=== PATIENT | male | born 1980 | race Caucasian/White ===

== ENCOUNTER 2020-08-09 10:50 | Inpatient (IN) | payer BC ==
[2020-08-09] MEDS ORDERED: chlordiazePOXIDE HCL 25 MG CAPSULE ONE (11:52)
[2020-08-09] MEDS ORDERED: MAGNESIUM CITRATE 300 ML BOTTLE PO PRN (12:10)
[2020-08-09] MEDS ORDERED: MAG HYDROX/AL HYDROX/SIMETH 30 ML UNIT-DOSE CUP PO PRN (12:10)
[2020-08-09] MEDS ORDERED: IBUPROFEN 400 MG TABLET (FP) PO PRN (12:10)
[2020-08-09] MEDS ORDERED: ACETAMINOPHEN 325 MG TABLET (FP) PO PRN ×2 (12:10)
[2020-08-09] MEDS ORDERED: MENTHOL/PHENOL 1 EACH UD MM PRN (12:10)
[2020-08-09] MEDS ORDERED: BISMUTH SUBSALICYLATE 262 MG/15 ML BTL PO PRN (12:10)
[2020-08-09] MEDS ORDERED: ONDANSETRON *ODT* 4 MG TABLET SL PRN (12:10)
[2020-08-09] MEDS ORDERED: chlordiazePOXIDE HCL 25 MG CAPSULE PO PRN (12:10)
[2020-08-09] MEDS ORDERED: METHOCARBAMOL 500 MG TABLET PO PRN (12:10)
[2020-08-09] MEDS ORDERED: MAGNESIUM HYDROX 2400MG/30ML ORAL SUSPENSION 30 ML CUP PO PRN (12:10)
[2020-08-09 12:12] VITALS: BMI 39.8
[2020-08-09] MEDS: hydrOXYzine PAMOATE 25 MG CAPSULE (FP) PO SCH ×3 (13:47→22:26)
[2020-08-09] MEDS: chlordiazePOXIDE HCL 25 MG CAPSULE PO SCH ×3 (13:47→22:21)
[2020-08-09] MEDS: PRENATAL VITAMINS W/ FOLIC ACID TABLET (FP) PO SCH (13:53)
[2020-08-09 17:01] LABS: HEMATOCRIT 51.8 % (35.4-49); HEMOGLOBIN 17.7 GM/dL (11.7-16.9); MCH 32.1 pg (25.7-33.7); MCHC 34.3 g/dl (32.0-35.9); MEAN CELL VOLUME 93.6 fl (80-96); MEAN PLT VOLUME 8.7 fl (7.5-11.1); PLATELET COUNT 209 K/MM3 (134-434); RBC 5.53 M/mm3 (4.00-5.60); RDW 16.4 % (11.9-15.9); WHITE BLOOD COUNT 7.1 K/mm3 (4.0-10.0)
[2020-08-09 17:09] LABS: ALBUMIN 4.3 g/dl (3.4-5.0); BLOOD UREA NITROGEN 19.9 mg/dL (7-18); CALCIUM 8.6 mg/dL (8.5-10.1)
[2020-08-09 17:12] LABS: CREATININE 1.7 mg/dL (0.55-1.3)
[2020-08-09 17:13] LABS: BILIRUBIN,TOTAL 1.1 mg/dL (0.2-1); TOT PROT 8.6 g/dl (6.4-8.2)
[2020-08-09 18:17] LABS: HIV INTERPRETATION NEGATIVE (NEGATIVE)
[2020-08-09] MEDS ORDERED: POTASSIUM CHLORIDE TABS 20 MEQ TABLET.ER (FP) PO ONE (18:57)
[2020-08-09] MEDS ORDERED: MELATONIN 5 MG TABLETS PO SCH (22:00)
[2020-08-09] MEDS: traZODone HCL 50 MG TABLET (FP) PO SCH (22:21)
[2020-08-09] MEDS: THIAMINE HCL 100 MG TABLET (FP) PO SCH (22:21)
[2020-08-09] MEDS: CARVEDILOL PO SCH (22:22)
[2020-08-09] MEDS: [UNRECOGNIZED DRUG - OTHER] PO SCH (22:23)
[2020-08-09] MEDS: VALSARTAN PO SCH (22:23)
[2020-08-09] MEDS: SACUBITRIL PO SCH (22:23)
[2020-08-10] MEDS: chlordiazePOXIDE HCL 25 MG CAPSULE PO SCH ×4 (05:13→22:18)
[2020-08-10] MEDS: hydrOXYzine PAMOATE 25 MG CAPSULE (FP) PO SCH ×5 (05:13→22:18)
[2020-08-10] MEDS ORDERED: LISINOPRIL 5 MG PO SCH (10:00)
[2020-08-10] MEDS ORDERED: SACUBITRIL PO SCH (10:00)
[2020-08-10] MEDS ORDERED: VALSARTAN PO SCH (10:00)
[2020-08-10] MEDS ORDERED: [UNRECOGNIZED DRUG - OTHER] PO SCH (10:00)
[2020-08-10] MEDS ORDERED: POTASSIUM CHLORIDE TABS 20 MEQ TABLET.ER (FP) PO ONE (10:02)
[2020-08-10] MEDS: PRENATAL VITAMINS W/ FOLIC ACID TABLET (FP) PO SCH (10:39)
[2020-08-10] MEDS: CARVEDILOL PO SCH ×2 (10:40→22:17)
[2020-08-10] MEDS: COLCHICINE 0.6 MG PO SCH (10:40)
[2020-08-10] MEDS: [UNRECOGNIZED DRUG - OTHER] SL SCH (10:41)
[2020-08-10] MEDS: CYANOCOBALAMIN SL SCH (10:41)
[2020-08-10] MEDS: SACUBITRIL PO SCH (13:52)
[2020-08-10] MEDS: [UNRECOGNIZED DRUG - OTHER] PO SCH (13:52)
[2020-08-10] MEDS: VALSARTAN PO SCH (13:52)
[2020-08-10] MEDS: traZODone HCL 50 MG TABLET (FP) PO SCH (22:17)
[2020-08-10] MEDS: SACUBITRIL/VALSARTAN 24 MG-26 MG TABLET PO SCH (22:17)
[2020-08-10] MEDS: THIAMINE HCL 100 MG TABLET (FP) PO SCH (22:17)
[2020-08-11] MEDS: chlordiazePOXIDE HCL 25 MG CAPSULE PO SCH ×4 (05:31→22:14)
[2020-08-11] MEDS: hydrOXYzine PAMOATE 25 MG CAPSULE (FP) PO SCH ×5 (05:31→22:14)
[2020-08-11] MEDS: SACUBITRIL/VALSARTAN 24 MG-26 MG TABLET PO SCH (09:57)
[2020-08-11] MEDS: PRENATAL VITAMINS W/ FOLIC ACID TABLET (FP) PO SCH (09:57)
[2020-08-11] MEDS: COLCHICINE 0.6 MG PO SCH (09:57)
[2020-08-11] MEDS: CYANOCOBALAMIN SL SCH (09:58)
[2020-08-11] MEDS: [UNRECOGNIZED DRUG - OTHER] SL SCH (09:58)
[2020-08-11] MEDS: CARVEDILOL PO SCH (10:00)
[2020-08-11] MEDS ORDERED: CARVEDILOL PO SCH (10:21)
[2020-08-11] MEDS ORDERED: SACUBITRIL/VALSARTAN 24 MG-26 MG TABLET PO SCH (10:21)
[2020-08-11] MEDS ORDERED: LISINOPRIL 5 MG PO SCH (10:22)
[2020-08-11 10:31] LABS: CALCIUM 8.4 mg/dL (8.5-10.1)
[2020-08-11 10:32] LABS: BLOOD UREA NITROGEN 42.3 mg/dL (7-18)
[2020-08-11 10:35] LABS: CREATININE 2.2 mg/dL (0.55-1.3)
[2020-08-11] MEDS: THIAMINE HCL 100 MG TABLET (FP) PO SCH (22:13)
[2020-08-11] MEDS: traZODone HCL 50 MG TABLET (FP) PO SCH (22:14)
[2020-08-12] MEDS ORDERED: chlordiazePOXIDE HCL 10 MG CAPSULE PO PRN
[2020-08-12] MEDS: hydrOXYzine PAMOATE 25 MG CAPSULE (FP) PO SCH ×5 (05:25→22:10)
[2020-08-12] MEDS: chlordiazePOXIDE HCL 10 MG CAPSULE PO SCH ×4 (05:25→22:10)
[2020-08-12] MEDS: LISINOPRIL 5 MG TABLET PO SCH (10:32)
[2020-08-12] MEDS: SACUBITRIL/VALSARTAN 24 MG-26 MG TABLET PO SCH ×2 (10:33→22:11)
[2020-08-12] MEDS: CYANOCOBALAMIN SL SCH (10:34)
[2020-08-12] MEDS: PRENATAL VITAMINS W/ FOLIC ACID TABLET (FP) PO SCH (10:34)
[2020-08-12] MEDS: CARVEDILOL PO SCH ×2 (10:34→22:11)
[2020-08-12] MEDS: [UNRECOGNIZED DRUG - OTHER] SL SCH (10:34)
[2020-08-12] MEDS: COLCHICINE 0.6 MG PO SCH (10:34)
[2020-08-12] MEDS: traZODone HCL 50 MG TABLET (FP) PO SCH (22:11)
[2020-08-12] MEDS: THIAMINE HCL 100 MG TABLET (FP) PO SCH (22:12)
[2020-08-13] MEDS ORDERED: chlordiazePOXIDE HCL 10 MG CAPSULE PO SCH (05:00)
[2020-08-13] MEDS: hydrOXYzine PAMOATE 25 MG CAPSULE (FP) PO SCH ×2 (05:14→09:26)
[2020-08-13] MEDS: SACUBITRIL/VALSARTAN 24 MG-26 MG TABLET PO SCH (09:24)
[2020-08-13] MEDS: LISINOPRIL 5 MG TABLET PO SCH (09:24)
[2020-08-13] MEDS: CYANOCOBALAMIN SL SCH (09:25)
[2020-08-13] MEDS: COLCHICINE 0.6 MG PO SCH (09:25)
[2020-08-13] MEDS: [UNRECOGNIZED DRUG - OTHER] SL SCH (09:25)
[2020-08-13] MEDS: PRENATAL VITAMINS W/ FOLIC ACID TABLET (FP) PO SCH (09:25)
[2020-08-13] MEDS: CARVEDILOL PO SCH (09:25)
[2020-08-13 09:27] VITALS: BP 150/102; PULSE 81; TEMP 98.1
[2020-08-13 11:04] LABS: ALBUMIN 3.2 g/dl (3.4-5.0); BLOOD UREA NITROGEN 22.3 mg/dL (7-18)
[2020-08-13 11:07] LABS: CREATININE 1.3 mg/dL (0.55-1.3)
[2020-08-13 11:09] LABS: BILIRUBIN,TOTAL 0.2 mg/dL (0.2-1); TOT PROT 6.7 g/dl (6.4-8.2)
[2020-08-14] MEDS ORDERED: chlordiazePOXIDE HCL 10 MG CAPSULE PO ONE (05:00)
== END 2020-08-13 09:32 | disposition home or self-care (01) | DRG 897 ==
LOC: YASAS 10:50 → Y6N 12:10
PROVIDERS: ADMIT Allergy & Immunology; ATTEND Allergy & Immunology
PROC: HZ2ZZZZ Detoxification Services for Substance Abuse Treatment (ICD-10-PCS; principal; 2020-08-09)
DX: F10.230 Alcohol dependence with withdrawal, uncomplicated (principal); F19.282 Other psychoactive substance dependence with psychoactive substance-induced sleep disorder; I42.6 Alcoholic cardiomyopathy; F19.24 Other psychoactive substance dependence with psychoactive substance-induced mood disorder; F32.9 Major depressive disorder, single episode, unspecified; E87.6 Hypokalemia; I11.0 Hypertensive heart disease with heart failure; I50.9 Heart failure, unspecified; R73.9 Hyperglycemia, unspecified; R79.89 Other specified abnormal findings of blood chemistry; E66.9 Obesity, unspecified; Z68.39 Body mass index [BMI] 39.0-39.9, adult
CPT/HCPCS: 36415; 80048; 80051; 80053; 85027; 86780; 87389; 93005; 93010; C9803; U0003